=== PATIENT | female | born 1950 | race Caucasian/White ===

== ENCOUNTER → 2017-01-15 | Outpatient (REF) | LOC: WSOH 14:30 | DX: Z02.89 Encounter for other administrative examinations (principal) ==

== ENCOUNTER → 2017-02-26 | Outpatient (REF) | LOC: WSOH 18:15 | DX: Z02.89 Encounter for other administrative examinations (principal) ==

== ENCOUNTER → 2018-08-18 | Outpatient (CLI) | payer OTHER | LOC: MC.RAD 13:45 | DX: Z12.31 Encounter for screening mammogram for malignant neoplasm of breast (principal) ==

== ENCOUNTER → 2019-03-04 | Outpatient (CLI) | payer OTHER ==
[2019-03-04 06:32] LABS: ALBUMIN 4.3 gm/dL (3.5-5.0); BILIRUBIN,TOTAL 0.7 mg/dL (0.0-1.0); CALCIUM 9.4 mg/dL (8.4-10.2); CHOLESTEROL RISK RATIO 4.3; CREATININE, serum 0.71 (0.52-1.25); POTASSIUM 4.1 mmol/L (3.4-5.0); TOTAL PROTEIN 7.3 gm/dL (6.4-8.2)
[2019-03-04 06:51] LABS: BASO % 0.6 % (0.0-2.0); EOS # 0.2 (0.0-0.7); EOS % 4.7 % (0-4.0); GRAN % 42.9 % (42.2-75.2); HEMATOCRIT 43.2 % (37.0-47.0); HEMOGLOBIN 14.5 g/dl (12.5-16.0); LYMPH % 42.3 % (20.0-51.0); MEAN CELL VOLUME 95 fl (80.0-100.0); MEAN CORPUSCULAR HEMOGLOBIN 32 pg (27.0-31.0); MEAN CORPUSCULAR HGB CONC 34 g/dl (33.0-37.0); MEAN PLATELET VOLUME 9.4 fl (7.4-10.4); MONO # 0.4 (0.1-0.6); MONO % 9.3 % (1.7-9.3); PLATELET COUNT 117 K/mm3 (130-400); RED BLOOD COUNT 4.53 M/mm3 (4.10-5.30); REDCELL DISTRIBUTION WIDTH-CV 11.9 % (11.5-14.5)
[2019-03-04 07:00] LABS: TSH w REFLEX 4.15 uIU/mL (0.465-4.680)
== END ==
LOC: COL.LAB 05:55
PROVIDERS: Family Medicine
DX: Z00.00 Encounter for general adult medical examination without abnormal findings (principal); Z11.59 Encounter for screening for other viral diseases; E03.9 Hypothyroidism, unspecified

== ENCOUNTER → 2020-03-20 | Outpatient (CLI) | payer OTHER ==
[2020-03-21 09:25] LABS: BASO # 0.1 (0.0-0.2); BASO % 0.8 % (0.0-2.0); EOS # 0.1 (0.0-0.7); GRAN # 3.3 (1.4-6.5); GRAN % 55.4 % (42.2-75.2); HEMATOCRIT 42.1 % (37.0-47.0); HEMOGLOBIN 14.5 g/dl (12.5-16.0); LYMPH # 1.9 (1.2-3.4); LYMPH % 31.2 % (20.0-51.0); MEAN CELL VOLUME 94 fl (80.0-100.0); MEAN CORPUSCULAR HEMOGLOBIN 32 pg (27.0-31.0); MEAN CORPUSCULAR HGB CONC 34 g/dl (33.0-37.0); MEAN PLATELET VOLUME 9.3 fl (7.4-10.4); MONO # 0.6 (0.1-0.6); MONO % 10.1 % (1.7-9.3); PLATELET COUNT 155 K/mm3 (130-400); RED BLOOD COUNT 4.48 M/mm3 (4.10-5.30); REDCELL DISTRIBUTION WIDTH-CV 11.9 % (11.5-14.5)
[2020-03-21 09:39] LABS: ALBUMIN 4.2 gm/dL (3.5-5.0); BILIRUBIN,TOTAL 0.6 mg/dL (0.0-1.0); CALCIUM 9.1 mg/dL (8.4-10.2); CHOLESTEROL RISK RATIO 3.8; CREATININE, serum 0.72 (0.52-1.25); POTASSIUM 4.1 mmol/L (3.4-5.0); TOTAL PROTEIN 7.3 gm/dL (6.4-8.2)
[2020-03-21 10:08] LABS: TSH w REFLEX 2.29 uIU/mL (0.465-4.680)
== END | disposition still patient (30) ==
LOC: COL.LAB 00:26
PROVIDERS: Family Medicine
DX: Z00.00 Encounter for general adult medical examination without abnormal findings (principal); E03.9 Hypothyroidism, unspecified; E78.2 Mixed hyperlipidemia

== ENCOUNTER → 2021-04-02 | Outpatient (CLI) | payer MEDICARE, OTHER ==
[2021-04-02 06:33] LABS: BASO # 0.1 (0.0-0.2); BASO % 1.2 % (0.0-2.0); EOS # 0.3 (0.0-0.7); EOS % 5.4 % (0-4.0); GRAN # 2.3 (1.4-6.5); GRAN % 45.9 % (42.2-75.2); HEMATOCRIT 42.3 % (37.0-47.0); HEMOGLOBIN 14.4 g/dl (12.5-16.0); LYMPH # 1.9 (1.2-3.4); MEAN CELL VOLUME 95 fl (80.0-100.0); MEAN CORPUSCULAR HEMOGLOBIN 32 pg (27.0-31.0); MEAN CORPUSCULAR HGB CONC 34 g/dl (33.0-37.0); MEAN PLATELET VOLUME 8.9 fl (7.4-10.4); MONO # 0.5 (0.1-0.6); MONO % 9.1 % (1.7-9.3); PLATELET COUNT 159 K/mm3 (130-400); RED BLOOD COUNT 4.47 M/mm3 (4.10-5.30); REDCELL DISTRIBUTION WIDTH-CV 11.9 % (11.5-14.5)
[2021-04-02 07:00] LABS: ALBUMIN 3.6 gm/dL (3.4-4.8); BILIRUBIN,TOTAL 0.6 mg/dL (0.2-1.2); CALCIUM 9.1 mg/dL (8.4-10.2); CHOLESTEROL RISK RATIO 3.2; CREATININE, serum 0.79 mg/dL (0.57-1.11); POTASSIUM 4.1 mmol/L (3.5-4.5); TOTAL PROTEIN 6.8 gm/dL (6.2-8.1)
[2021-04-02 07:22] LABS: TSH w REFLEX 2.456 uIU/mL (0.350-4.940)
== END ==
LOC: COL.LAB 05:55
PROVIDERS: Family Medicine
DX: Z00.00 Encounter for general adult medical examination without abnormal findings (principal); E78.2 Mixed hyperlipidemia; E03.9 Hypothyroidism, unspecified

== ENCOUNTER → 2021-09-12 | Outpatient (CLI) | payer MEDICARE, OTHER | LOC: COL.LAB 11:46 | DX: Z20.822 Contact with and (suspected) exposure to COVID-19 (principal) ==

== ENCOUNTER → 2022-03-06 | Outpatient (CLI) | payer MEDICARE, OTHER ==
[2022-03-06 09:25] LABS: BASO % 0.9 % (0.0-2.0); EOS # 0.3 K/mm3 (0.0-0.7); EOS % 5.6 % (0.0-4.0); GRAN # 2.2 K/mm3 (1.4-6.5); GRAN % 49.3 % (42.2-75.2); HEMATOCRIT 43.1 % (37.0-47.0); HEMOGLOBIN 14.9 g/dl (12.5-16.0); LYMPH # 1.6 K/mm3 (1.2-3.4); LYMPH % 35.1 % (20.0-51.0); MEAN CELL VOLUME 94 fl (80.0-100.0); MEAN CORPUSCULAR HEMOGLOBIN 32 pg (27-31); MEAN CORPUSCULAR HGB CONC 35 g/dl (33.0-37.0); MEAN PLATELET VOLUME 9.1 fl (7.4-10.4); MONO # 0.4 K/mm3 (0.1-0.6); MONO % 8.9 % (1.7-9.3); PLATELET COUNT 128 K/mm3 (130-400); RED BLOOD COUNT 4.61 M/mm3 (4.10-5.30); REDCELL DISTRIBUTION WIDTH-CV 11.6 % (11.5-14.5)
[2022-03-06 09:30] LABS: BILIRUBIN,TOTAL 0.7 mg/dL (0.2-1.2); CALCIUM 9.4 mg/dL (8.4-10.2); CHOLESTEROL RISK RATIO 3.9; CREATININE, serum 0.78 mg/dL (0.57-1.11); POTASSIUM 4.1 mmol/L (3.5-4.5); TOTAL PROTEIN 7.1 gm/dL (6.2-8.1)
[2022-03-06 09:50] LABS: TSH w REFLEX 1.777 uIU/mL (0.350-4.940)
[2022-03-06 10:20] LABS: ALBUMIN 3.8 gm/dL (3.4-4.8)
== END ==
LOC: COL.LAB 07:57
PROVIDERS: Family Medicine
DX: Z13.1 Encounter for screening for diabetes mellitus (principal); E78.2 Mixed hyperlipidemia; E03.9 Hypothyroidism, unspecified

== ENCOUNTER 2023-08-28 09:50 | Day surgery (SDC) | payer MEDICARE, OTHER ==
[~2023-08-28] VITALS: Ht 160 cm; Wt 60.9 kg
[~2023-08-28 09:50] MED LIST: LEVOXYL0.1 MG PO; LR 1,000 ML IV SCH; MULTI VITAMINS1 TAB PO; OMEGA-3 1000 MG1 CAP PO
[2023-08-28] MEDS ORDERED: ESTRACE0.5 MG PO (10:36)
[2023-08-28] MEDS ORDERED: OSCAL 500 TAB500 MG PO (10:37)
[2023-08-28] MEDS ORDERED: METAMUCIL0.52 G1 PO (10:38)
[2023-08-28] MEDS ORDERED: GLUCOSAMINE SU500 M2 PO (10:38)
[2023-08-28 10:53] VITALS: BP 151/72; PULSE 83; TEMP 97.7
[2023-08-28] MEDS ORDERED: NS 10 ML IV ONE (11:38)
[2023-08-28] MEDS ORDERED: Lidocaine PF 2% (20 MG/ML) 5 ML VIAL ONE (11:38)
[2023-08-28] MEDS ORDERED: fentaNYL 50 MCG/ML 2 ML VIAL ONE (11:50)
[2023-08-28] MEDS ORDERED: Lidocaine PF 2% (20 MG/ML) 10 ML POLY AMP IJ ONE (11:58)
[2023-08-28 12:45] VITALS: BP 115/66; PULSE 80; TEMP 97.6
[2023-08-28 13:00] VITALS: BP 112/66; PULSE 80
[2023-08-28 13:15] VITALS: BP 126/69; PULSE 80
[2023-08-28 13:30] VITALS: BP 143/69; PULSE 80
[2023-08-28 13:45] VITALS: BP 141/70; PULSE 78
--- NOTE | 2023-08-28 14:20 | NUR ---
1245 RETURNS TO ROOM 5 FROM OR PER CART. AROUSES TO VERBAL STIMULI. RESP UNLABORED. FAMILIARIZED WITH SURROUNDINGS. VITAL SIGNS OBTAINED. DRESSING LEFT FOOT CLEAN DRY AND INTACT. NEURO/CIRC CHECKS LEFT LOWER EXTREMITY INTACT POST OP SHOE ON. DENIES PAIN. CALL LIGHT AT SIDE. 1300 DOZING, AROUSES TO VERBAL STIMULI. DENIES PAIN. 1315 AROUSES. HOB ELEVATED 50 DEGREES. DENIES PAIN 1330 DECREASED DROWSINESS. TOLERATES PO WATER AND JUIE WITHOUT NAUSEA 1345 AWAKE, ALERT. REPORTS SIGNIFICANT DECREASED DROWSINESS. NEURO/CIRC CHECKS LEFT FOOT INTACT. DENIES PAIN 1355 DISCHARGE INSTRUCTIONS REVIEWED. PATIENT VERBALIZES UNDERSTANDING. COPY PROVIDED IN DISCHARGE FOLDER 4104 SITS ON EDGE OF BED WITH MINIMAL ASSISTANCE. DRESSES SELF
== END 2023-08-28 14:20 | disposition home or self-care (01) ==
LOC: SDCO 09:50
DX: M19.072 Primary osteoarthritis, left ankle and foot (principal); M20.42 Other hammer toe(s) (acquired), left foot; M89.8X7 Other specified disorders of bone, ankle and foot; E78.2 Mixed hyperlipidemia; E03.9 Hypothyroidism, unspecified; K59.00 Constipation, unspecified; N95.2 Postmenopausal atrophic vaginitis; K59.09 Other constipation; Z80.0 Family history of malignant neoplasm of digestive organs; Z79.890 Hormone replacement therapy
CPT/HCPCS: C1713; J0690; J2704; J3010; J7120